=== PATIENT | male | born 1935 | race Caucasian/White ===

== ENCOUNTER 2017-11-26 19:56 | Observation (INO) ==
[2017-11-26 21:45] LABS: Basophils # (Auto) 0 K/mcL (0.0-0.3); Basophils % (Auto) 0.4 % (0.0-2.0); Eosinophils # (Auto) 0.1 K/mcL (0.0-0.7); Granulocytes % (Auto) 78.4 % (38.0-78.0); Lymphocytes # (Auto) 0.9 K/mcL (1.5-4.8); Mean Cell Volume 87.5 fL (80.0-100.0); Mean Corpuscular HGB Conc 34.8 g/dL (31.0-36.0); Mean Corpuscular Hemoglobin 30.5 pg (26.0-34.0); Monocytes # (Auto) 0.3 K/mcL (0.1-0.9); Monocytes % (Auto) 5.2 % (1.0-12.0); Platelet Count 269 K/mcL (140-440); RBC 4.13 M/mcL (4.50-5.90); Red Cell Distribution Width 12.9 % (11.5-14.5)
[2017-11-26] MEDS ORDERED: ONDANSETRON 4 MG/2 ML VIAL IV ONE (21:56)
[2017-11-26 22:02] LABS: ALT/SGPT 13 U/l (0-40); Albumin 4.1 gm/dL (3.2-5.2); Albumin/Globulin Ratio 1.3 (1.0-2.3); Alkaline Phosphatase 70 U/L (39-117); Blood Urea Nitrogen 27 mg/dl (8-23); Magnesium 2.1 mg/dL (1.6-2.5)
[2017-11-26] MEDS ORDERED: 0.9 % SODIUM CHLORIDE 1,000 ML IV ONE (22:42)
[2017-11-26] MEDS ORDERED: METOCLOPRAMIDE 10 MG/2 ML VIAL IV ONE (23:15)
--- NOTE | 2017-11-26 23:37 | Emergency Department Note ---
Abdominal Pain HPI - General Chief Complaint: Syncope Stated Complaint: Vagal Episodes Time Seen by Provider: 11/26/17 20:33 Source: patient Mode of arrival: ambulatory Limitations: no limitations - History of Present Illness HPI Narrative: 82-year-old man comes in via EMS after syncopal episode in his motor home. He went and had a hamburger at [employer] with his and afterwards came back to his motor home and went to have a bowel movement. While bearing down for a bowel movement which he says was soft, he passed out. His talked him get up and brought him back to his bed where he promptly passed out again. At this point EMS called. He vomited twice once in the ambulance and once in his motor home. EMS found him to be bradycardic with a heart rate of 36, bradycardia. I reviewed that rhythm strip. Happened twice before most recently 4 years ago. He reports that he is on 2 blood pressure medicines doxazosin and enalapril. He did not hurt himself when he passed out and fell either time, there was not enough room in the motor home for him to fall far enough to get hurt Reports recent cough and congestion along with feeling hot but no specific fever checked. 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 He completed vestibular rehab for vertigo about a year ago - Related Data Home Medications Medication Instructions Recorded Confirmed ALPRAZolam [Xanax] 0.25 mg PO DAILY 11/26/17 11/26/17 Clotrimazole/Betamethasone Dip 0 gm TOPICAL DAILY 11/26/17 11/26/17 [Clotrimazole-Betamethasone Crm] Doxazosin [Cardura] 4 mg PO DAILY 11/26/17 11/26/17 Enalapril [Vasotec] 5 mg PO DAILY 11/26/17 11/26/17 Meclizine [Antivert] 12.5 mg PO DAILYP PRN 11/26/17 11/26/17 Multivitamin [One Daily 1 each PO DAILY 11/26/17 11/26/17 Multivitamin] Mv-Mn/Iron/FA/Herbal Cmplx#190 1 each PO DAILY 11/26/17 11/26/17 [Vitamin D3 Complete Caplet] Omeprazole [PriLOSEC] 40 mg PO ACB 11/26/17 11/26/17 Riboflavin [Vitamin B-2] 250 mg PO BID 11/26/17 11/26/17 Allergies Allergy/AdvReac Type Severity Reaction Status Date / Time Penicillins [PENICILLINS] Allergy Severe "QUIT Verified 11/26/17 20:08 BREATHING" ciprofloxacin [From CIPRO] AdvReac Severe Vomiting Verified 11/26/17 20:08 metronidazole [From FLAGYL] AdvReac Severe Vomiting Verified 11/26/17 20:08 ibuprofen [IBUPROFEN] AdvReac Intermediate UPSETS Verified 11/26/17 20:08 STOMACH, BURNING STOMACH gabapentin [GABAPENTIN] AdvReac Mild STOMACH Verified 11/26/17 20:08 UPSET Review of Systems All systems ED: reviewed and negative except as stated. Abdominal Pain PMH - Past Medical History Attestation: Yes: The following information was validated with the patient. Medical history: Reports: hypertension, other (Post polio syndrome for which he wears braces on his bilateral legs. Intermittent vertigo) Surgical history ED: Reports: tonsillectomy, other (Stomach procedure) - Social History Smoking status: Never smoker Alcohol use: Reports: None Physical Exam Normocephalic atraumatic. Conjunctive are clear sclerae white and nonicteric. No nasal discharge or congestion. Oropharynx is pink and moist. Posterior pharynx is clear. Neck is supple without lymphadenopathy or thyromegaly. Heart is regular rate and rhythm no murmurs appreciated. Lungs are clear to auscultation bilaterally without wheezes rales rhonchi or respiratory distress. Abdomen soft nontender nondistended-however palpating his stomach does elicit nausea. No peritoneal signs or guarding. No active bowel sounds. No pedal edema but he is wearing braces on both legs. +2 radial pulse. Alert oriented able to answer questions appropriately. Cranial nerves II through XII grossly intact. Face is symmetrical. No dysarthria or ataxia is noted Limitations: no limitations Course Vital Signs Temperature 97.8 F 11/26/17 19:57 Pulse Rate 57 L 11/26/17 19:57 Respiratory Rate 18 11/26/17 19:57 Blood Pressure 157/67 11/26/17 19:57 Pulse Oximetry (%) 97 01/23/18 19:57 Temperature 97.8 F 11/26/17 19:57 Pulse Rate 76 11/26/17 23:32 Respiratory Rate 16 11/26/17 23:32 Blood Pressure 153/94 11/26/17 23:31 Pulse Oximetry (%) 96 11/26/17 23:32 Abdominal Pain - Lab Data Lab results reviewed: Yes I reviewed the patient's lab results. Result diagrams: 11/26/17 20:46 11/26/17 20:46 Lab Results 11/26/17 11/26/17 11/26/17 Range/Units 20:46 20:46 20:46 WBC 6.5 (4.5-11.0) K/mcL RBC 4.13 L (4.50-5.90) M/mcL Hgb 12.6 L (13.5-16.5) g/dL Hct 36.1 L (41.0-55.0) % POC Hct 36.0 L (41.0-55.0) % MCV 87.5 (80.0-100.0) fL MCH 30.5 (26.0-34.0) pg MCHC 34.8 (31.0-36.0) g/dL RDW 12.9 (11.5-14.5) % Plt Count 269 (140-440) K/mcL MPV 8.1 (7.4-10.4) fL Gran % 78.4 H (38.0-78.0) % Lymph % (Auto) 14.0 L (15.5-49.0) % [place] % (Auto) 5.2 (1.0-12.0) % Eos % (Auto) 2.0 (0.0-7.0) % Baso % (Auto) 0.4 (0.0-2.0) % Gran # 5.2 (1.8-8.0) K/mcL Lymph # (Auto) 0.9 L (1.5-4.8) K/mcL [place] # (Auto) 0.3 (0.1-0.9) K/mcL Eos # (Auto) 0.1 (0.0-0.7) K/mcL Baso # (Auto) 0 (0.0-0.3) K/mcL VBG Lactic Acid 1.1 (0.5-2.2) mmol/L POC Sodium 140 (133-145) mmol/L Sodium 139 (133-145) mmol/L POC Potassium 3.7 (3.3-5.1) mmol/L Potassium 3.8 (3.3-5.1) mmol/L POC Chloride 103 (96-108) mmol/L Chloride 101 (96-108) mmol/L Carbon Dioxide 24 (22-30) mmol/L POC Total CO2 28 (22-30) mmol/L Anion Gap 14.0 (8-16) POC BUN 28 H (8-23) mg/dl BUN 27 H (8-23) mg/dl Creatinine 0.7 (0.7-1.2) mg/dl POC Creatinine 0.7 (0.7-1.2) mg/dl GFR Calculation 89 Glucose 129 H (70-105) mg/dL POC Glucose 127 H (70-105) mg/dL Calcium 9.2 (8.6-10.4) mg/dl POC WB Ioniz Calcium 1.14 L (1.16-1.32) mmol/L Magnesium 2.1 (1.6-2.5) mg/dL Total Bilirubin 0.2 (0.0-1.0) mg/dL AST 18 (0-37) U/l ALT 13 (0-40) U/l Alkaline Phosphatase 70 (39-117) U/L Troponin T (0-0.03) ng/ml Total Protein 7.2 (5.9-8.4) gm/dL Albumin 4.1 (3.2-5.2) gm/dL Globulin 3.1 (2.2-3.7) gm/dL Albumin/Globulin Ratio 1.3 (1.0-2.3) 11/26/17 Range/Units 20:46 WBC (4.5-11.0) K/mcL RBC (4.50-5.90) M/mcL Hgb (13.5-16.5) g/dL Hct (41.0-55.0) % POC Hct (41.0-55.0) % MCV (80.0-100.0) fL MCH (26.0-34.0) pg MCHC (31.0-36.0) g/dL RDW (11.5-14.5) % Plt Count (140-440) K/mcL MPV (7.4-10.4) fL Gran % (38.0-78.0) % Lymph % (Auto) (15.5-49.0) % [place] % (Auto) (1.0-12.0) % Eos % (Auto) (0.0-7.0) % Baso % (Auto) (0.0-2.0) % Gran # (1.8-8.0) K/mcL Lymph # (Auto) (1.5-4.8) K/mcL [place] # (Auto) (0.1-0.9) K/mcL Eos # (Auto) (0.0-0.7) K/mcL Baso # (Auto) (0.0-0.3) K/mcL VBG Lactic Acid (0.5-2.2) mmol/L POC Sodium (133-145) mmol/L Sodium (133-145) mmol/L POC Potassium (3.3-5.1) mmol/L Potassium (3.3-5.1) mmol/L POC Chloride (96-108) mmol/L Chloride (96-108) mmol/L Carbon Dioxide (22-30) mmol/L POC Total CO2 (22-30) mmol/L Anion Gap (8-16) POC BUN (8-23) mg/dl BUN (8-23) mg/dl Creatinine (0.7-1.2) mg/dl POC Creatinine (0.7-1.2) mg/dl GFR Calculation Glucose (70-105) mg/dL POC Glucose (70-105) mg/dL Calcium (8.6-10.4) mg/dl POC WB Ioniz Calcium (1.16-1.32) mmol/L Magnesium (1.6-2.5) mg/dL Total Bilirubin (0.0-1.0) mg/dL AST (0-37) U/l ALT (0-40) U/l Alkaline Phosphatase (39-117) U/L Troponin T < 0.01 (0-0.03) ng/ml Total Protein (5.9-8.4) gm/dL Albumin (3.2-5.2) gm/dL Globulin (2.2-3.7) gm/dL Albumin/Globulin Ratio (1.0-2.3) Orthostatic vital signs are normal Influenza swab is negative - Radiology Data Radiology results reviewed: Yes I reviewed the patient's radiology results. CT scan of the head without contrast is negative for any acute abnormality X-rays of the abdomen show copious stool nonspecific bowel gas pattern. Notable scoliosis X-ray of the chest shows pleural scarring and elevated right hemidiaphragm but no acute findings - EKG Data EKG attestation: Yes I reviewed and interpreted this EKG. 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 Initial workup included EKG laboratory and abdominal x-ray. Urinalysis was ordered as well as orthostatics On rhythm strip from EMS he clearly was in sinus bradycardia which gradually improved over the stay to heart rate in the 70s and 80s. Orthostatics were normal but he had persistent lightheadedness and felt like he was going to pass out. Further his nausea actually got worse and he received another dose of Zofran and then a dose of Reglan. After reassessment I ordered a CT scan of the head and influenza swab and IV fluids. All testing was negative except for the bradycardia seen initially which again resolved. However he remained persistently nauseous and presyncopal /vertiginous. However he did not have nystagmus. Despite IV fluids he did not urinate for us. I then discussed the case with Dr. Baca the hospitalist. He agreed to accept the patient for further investigation of his vasovagal syncope with subsequent symptomatic sinus bradycardia, nausea/vomiting and dizziness Disposition: Xfer As Outpt/Obs ([facility]) Condition: Fair Referrals: Corey Garcia MD [Primary Care Provider] -
[2017-11-27] MEDS ORDERED: NALOXONE HCL 0.4 MG/ML VIAL IV PRN (00:49)
[2017-11-27] MEDS ORDERED: IOPAMIDOL 100 ML BOTTLE IJ ONE (00:49)
[2017-11-27] MEDS ORDERED: ONDANSETRON 4 MG/2 ML VIAL IV PRN (00:49)
[2017-11-27] MEDS ORDERED: ACETAMINOPHEN 325 MG TABLET PO PRN (00:49)
[2017-11-27] MEDS ORDERED: HYDROcodone/APAP 5/325MG TABLET PO PRN (00:49)
--- NOTE | 2017-11-27 00:51 | Internal Med History&Physical ---
Medical - H&P: HPI Patient information: Note initiated : 11/27/17 at 12:38 am Service Date, if different from initiated Date: [] Patient: Xavier Slater 82 y/o M admitted on for Vagal Episodes. Chief Complaint: [] History of present illness: Mr. Slater is a 82 year old Male with h/p polio in the past, HTN, vertigo, presents to the ER today after 3 episodes of syncope. The history was provided by the patient and his , the patient was present during these episodes of syncope. The patient was doing all right till the evening dinner, when he had sudden feeling of nausea and throbbing sensation in the head, not feeling well, he felt like he may have to go to the bathroom, some mild nausea present. When he was on the toilet seat, he became more weak and called out his for help. She arrived to see him pale, sweating and not himself, She gave him some towel to help, thats when he passed out, on his side, the patient then woke up, and passed 2 more times. EMS was therefore called. EMS noted that the patient had a bradycardic strip, the patient by the time of arrival to the ER had improved heart rate. The patient since then has been complaining of abdominal discomfort, and some nausea, changes in head position from sitting to standing will make him dizzy, and nauseaus, he will not pass out but feel very sick. He was on monitor and no bradycardia was no carolyn. The patient has h/o vertigo, and takes Meclizine prn for same, now uses a wrist c band for motion sickess and vertigo, last use of meclizine was over a year ago , vertigo spells started approximately 4 yrs ago. The patient has had 2 more episodes of syncope in the past, never like this but always on the toilet seat. The patient PCP has attributed this to vasovagal syncope. The patient denies any seizuer like episodes, no blood in the stools, the patient denies any chest pain, palpitations, changes in vision, abnormal smells , or any other complaints. In the ER the patient EKG shows sinus rhythm, with first degree HB and low voltage, labs are unremarkable, X ray chest seems neg, X ray abdomen is neg, CT head is negative. The patient othostatic bp shows elevation of HR by 20, but no drop in BP, the patient does get nauseas and feels dizzy with change in position. given that he lives in a trailer with his , and he is weak and dizzy, it was decided to admit him to the hospital for further management. All systems: reviewed and no additional remarkable complaints except as stated ( as per HPI) Medical - H&P: PMH Medical history: Medical History Vasovagal syncope (Acute) Symptomatic sinus bradycardia (Acute) Nausea & vomiting (Acute) Vertigo (Acute) HTN polio syncope GERD schatzki ring diverticulosis, with h/o diverticulitis Surgical history: nissens fundoplication CTS polio related surgery in lower extremity Pertinent family history: father with cAD, [place] at age 73 mother had pacemaker in the 's Social history: lives with in a trailor no smoking, no etoh, no recreational substance use. reported. Medical - H&P: Meds Home Medications Medication Instructions Recorded Confirmed Type ALPRAZolam [Xanax] 0.25 mg PO DAILY 11/26/17 11/26/17 History Clotrimazole/Betamethasone Dip 0 gm TOPICAL DAILY 11/26/17 11/26/17 History [Clotrimazole-Betamethasone Crm] Doxazosin [Cardura] 4 mg PO DAILY 11/26/17 11/26/17 History Enalapril [Vasotec] 5 mg PO DAILY 11/26/17 11/26/17 History Meclizine [Antivert] 12.5 mg PO DAILYP PRN 11/26/17 11/26/17 History Multivitamin [One Daily 1 each PO DAILY 11/26/17 11/26/17 History Multivitamin] Mv-Mn/Iron/FA/Herbal Cmplx#190 1 each PO DAILY 11/26/17 11/26/17 History [Vitamin D3 Complete Caplet] Omeprazole [PriLOSEC] 40 mg PO ACB 11/26/17 11/26/17 History Riboflavin [Vitamin B-2] 250 mg PO BID 11/26/17 11/26/17 History Allergies Allergy/AdvReac Type Severity Reaction Status Date / Time Penicillins [PENICILLINS] Allergy Severe "QUIT Verified 11/26/17 20:08 BREATHING" ciprofloxacin [From CIPRO] AdvReac Severe Vomiting Verified 11/26/17 20:08 metronidazole [From FLAGYL] AdvReac Severe Vomiting Verified 11/26/17 20:08 ibuprofen [IBUPROFEN] AdvReac Intermediate UPSETS Verified 11/26/17 20:08 STOMACH, BURNING STOMACH gabapentin [GABAPENTIN] AdvReac Mild STOMACH Verified 11/26/17 20:08 UPSET Medical - H&P: Exam - Constitutional Vitals: Temp Pulse Resp BP Pulse Ox 97.8 F 78 15 153/94 96 11/26/17 19:57 11/26/17 23:33 11/26/17 23:33 11/26/17 23:31 11/26/17 23:33 Exam: GENERAL: The patient is a well-developed, well-nourished in no apparent distress. Is alert and oriented x3. VITAL SIGNS: Reviewed and as noted elsewhere. HEENT: Head is normocephalic and atraumatic. Extraocular muscles are intact. Pupils are equal, round, and reactive to light. Nares appeared normal. Mouth appears any without lesions. Mucous membranes are dry NECK: Normal to inspection, Supple, No lymphadenopathy or thyromegaly. no carotid murmur LUNGS: Air entry equal on both sides, no wheezing, crackles or rhonchi noted. No accessory muscles of respiration HEART: Regular rate and rhythm normal, S1 and S2 heard, no Gallop, S3 or Rub Noted, No Gross murmur heard. ABDOMEN: Soft, left lower quadrant tenderness present, nondistended. Positive bowel sounds. No hepatosplenomegaly was noted. EXTREMITIES: No cyanosis, clubbing, rash, both legs in braces, NEUROLOGIC: Cranial nerves II through XII are grossly intact. Motor and Sensory System Grossly Intact, no nystagmus, pupils equally reactive to light, PSYCHIATRIC: Normal affect, Normal Mood. Appropriate Behavior. SKIN: No ulceration or wounds noted, No jaundice, No rash noted. Medical - H&P: Reslt - Labs CBC & Chem 7: 11/26/17 20:46 11/26/17 20:46 Labs: Short CBC 11/26/17 Range/Units 20:46 WBC 6.5 (4.5-11.0) K/mcL Hgb 12.6 L (13.5-16.5) g/dL Hct 36.1 L (41.0-55.0) % Plt Count 269 (140-440) K/mcL BMP 11/26/17 20:46 Sodium 139 Potassium 3.8 Chloride 101 Carbon Dioxide 24 BUN 27 H Creatinine 0.7 Glucose 129 H Calcium 9.2 Cardiac Enzymes 11/26/17 Range/Units 20:46 Troponin T < 0.01 (0-0.03) ng/ml Liver Function 11/26/17 Range/Units 20:46 Total Bilirubin 0.2 (0.0-1.0) mg/dL AST 18 (0-37) U/l ALT 13 (0-40) U/l Alkaline Phosphatase 70 (39-117) U/L Albumin 4.1 (3.2-5.2) gm/dL Medical - H&P: A/P - Narrative A/P Narrative: A/P Vasovagal syncope: H/o same in the past with similar circumstances, but given his age, will observe on tele, strip by ems was bradycardic, which is expected. Patient has recovered now. check TSH, check echo. CT head is negative. Dizziness/ vertigo/ nausea: likely exacerbation of his vertigo symptoms, Physical therapy, IV fluids and meclizine HTN : Resume home meds, patient has alpha frank, which can predispose to orthostatic dizziness, Will advise to discuss with pcp regarding same. Abdominal pain/ nausea: Exam has some left lower quadrant tenderness, albs unremarkable, pt has h/o nissens fundoplication, will get CT abdomen in AM. DVT hep sq Diet regular Full code.
[2017-11-27] MEDS: 0.9 % SODIUM CHLORIDE 1,000 ML IV SCH ×2 (01:07→07:22)
[2017-11-27] MEDS: MECLIZINE 25 MG TABLET PO SCH ×3 (01:07→15:00)
[2017-11-27 05:52] LABS: Basophils # (Auto) 0 K/mcL (0.0-0.3); Basophils % (Auto) 0.2 % (0.0-2.0); Eosinophils # (Auto) 0.1 K/mcL (0.0-0.7); Granulocytes % (Auto) 81.2 % (38.0-78.0); Lymphocytes # (Auto) 1.1 K/mcL (1.5-4.8); Mean Cell Volume 90.4 fL (80.0-100.0); Mean Corpuscular HGB Conc 34.2 g/dL (31.0-36.0); Mean Corpuscular Hemoglobin 30.9 pg (26.0-34.0); Monocytes # (Auto) 0.3 K/mcL (0.1-0.9); Monocytes % (Auto) 3.6 % (1.0-12.0); Platelet Count 259 K/mcL (140-440); RBC 3.71 M/mcL (4.50-5.90); Red Cell Distribution Width 13.6 % (11.5-14.5)
[2017-11-27 06:14] LABS: ALT/SGPT 11 U/l (0-40); Albumin 3.6 gm/dL (3.2-5.2); Albumin/Globulin Ratio 1.4 (1.0-2.3); Alkaline Phosphatase 61 U/L (39-117); Bilirubin,Direct < 0.2 mg/dL (0.0-0.3); Blood Urea Nitrogen 26 mg/dl (8-23); Gamma Glutamyl Transpeptidase 15 U/L (8-61); Magnesium 1.9 mg/dL (1.6-2.5); Uric Acid 4.2 mg/dL (2.5-8.0)
--- NOTE | 2017-11-27 06:18 | XRay Report ---
CLINICAL INFORMATION: Syncope COMPARISON: 01/26/2013 FINDINGS: Film taken in suboptimal inspiratory result accentuates the cardiomediastinal silhouette and pulmonary vessels. The heart is borderline enlarged. Subsegmental atelectasis noted in the right base, but no infiltrates. Right diaphragm mildly elevated - chronic finding. IMPRESSION: Suboptimal inspiratory result. Subsegmental right basilar atelectasis Moderate chronic elevation right diaphragm - stable Interpreted and Authenticated by: Yahir Love 11/27/17
--- NOTE | 2017-11-27 06:26 | XRay Report ---
CLINICAL INFORMATION: Syncope COMPARISON: None. FINDINGS: The stomach and duodenal bulb are mildly dilated with air-fluid levels. The small bowel and colon are relatively decompressed. No free air, organomegaly or soft tissue mass. Few phleboliths noted in the true pelvis. IMPRESSION: Mild dilatation of the stomach and duodenal bulb with decompression of the small bowel and colon. Findings are suggestive of possible duodenal obstruction or gastroparesis. Consider GI referral for endoscopy Interpreted and Authenticated by: Yahir Love 11/27/17
[2017-11-27] MEDS ORDERED: PANTOPRAZOLE 40 MG TABLET PO SCH (07:30)
[2017-11-27] MEDS ORDERED: RIBOFLAVIN PO SCH (09:00)
[2017-11-27] MEDS ORDERED: LISINOPRIL 5 MG TABLET PO SCH (09:00)
[2017-11-27] MEDS ORDERED: HEPARIN 5,000 UNIT/ML VIAL SQ SCH (09:00)
[2017-11-27] MEDS ORDERED: ALPRAZolam 0.25 MG TABLET PO SCH (09:00)
[2017-11-27] MEDS ORDERED: DOXAZOSIN 4 MG TABLET PO SCH (09:00)
[2017-11-27] MEDS ORDERED: ENALAPRIL 5 MG PO SCH (09:00)
--- NOTE | 2017-11-27 09:09 | Cat Scan Report ---
CLINICAL INFORMATION: Syncope. Patient has a known history of stable pituitary macroadenoma COMPARISON: Multiple MRIs dating back to 04/20/2004. TECHNIQUE: 2.5 mm helical slices were obtained in the skull base to vertex. Following reconstruction, axial reformatted images were reviewed at bone and parenchymal windows. The exam was performed using radiation dose optimization techniques including, but not limited to, automated exposure control, adjustment of the mA and/or kV according to patient size and use of iterative reconstruction technique. FINDINGS: The ventricles, sulci, fissures, and cisterns are symmetrically enlarged compatible with mild age-related atrophy. There is no subdural hemorrhage or extra-axial fluid collection appreciated. The no pituitary macroadenoma spans 20 x 12 x 16 mm has incited remodeling of the sella turcica. It extends to the lateral cavernous sinuses. It is unchanged. There is mild chronic ischemic changes in deep cerebral white matter with physiologic calcification seen in the lentiform nuclei. Is no acute cerebral hemorrhage mass effect or edema. IMPRESSION: 1. No intracerebral hemorrhage, edema or other acute intracerebral abnormality. 2. 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 Although the lesion has maintained long-term stability - it does mildly impinge the cavernous sinuses and could narrow the cavernous segments of one or both internal carotid arteries, thus representing a potential etiology for syncope. Consider CT cervical carotid and CT cerebral angiogram Interpreted and Authenticated by: Yahir Love 11/27/17
[2017-11-27 14:25] LABS: Appearance,Urine CLEAR; Bilirubin,Urine NEG (NEG); Color,Urine YELLOW; Glucose,Urine (UA) NEGATIVE (NEG); Leukocyte Esterase,Urine NEG /uL (NEG); Nitrate,Urine NEG (NEG); Protein,Urine NEG (NEG); Specific Gravity,Urine 1.012 (1.000-1.035); Urine Blood NEG mg/dL (<0.03); Urobilinogen,Urine NEG (NEG)
--- NOTE | 2017-11-27 15:40 | Cat Scan Report ---
CLINICAL INFORMATION: Abdominal pain COMPARISON: None. TECHNIQUE: Following enteric contrast, 80 cc of Isovue-300 were injected intravenously, and 60 seconds later, 0.625 mm helical slices were obtained from the mid heart through the subtrochanteric regions. Following reconstruction, 2.5 mm sagittal, coronal and axial reformatted images were processed and reviewed at bone, lung and soft tissue windows. Five minutes later, 0.625 mm helical slices were obtained from the mid heart through the kidneys and viewed at soft tissue windows.The exam was performed using radiation dose optimization techniques including, but not limited to, automated exposure control, adjustment of the mA and/or kV according to patient size and use of iterative reconstruction technique. FINDINGS: The right diaphragm is mildly elevated. Minor bibasilar atelectasis in both inferior lower lobes. No effusions. The visualized heart is normal in size with heavy calcific atherosclerotic plaque in the coronary arteries. Small hiatal hernia is noted. Images through the abdomen show the gallbladder and bile ducts, liver, right kidney, both adrenal glands, spleen, pancreas and aorta, including aortic branches, are normal in size, configuration and attenuation without focal lesion. There is a 2.5 cm simple cyst in the upper pole the left kidney and a 3.1 cm simple cyst inferior pole the left kidney. No free air, free fluid or adenopathy. The stomach, small large bowel and appendix are normal. The hepatic flexure is interposed between the anterior liver and the abdominal wall - a normal variant. Small bilateral inguinal hernias containing only mesenteric fat appreciated. Bone windows show severe L3-4 degenerative disc disease, but no focal osseous lesion. IMPRESSION: Small bilateral inguinal hernias containing only mesenteric fat. These are commonly seen and typically clinically inconsequential Sigmoid diverticulosis, but no CT evidence of diverticulitis. small hiatal hernia Interpreted and Authenticated by: Yahir Love 11/27/17
--- NOTE | 2017-11-27 16:01 | Discharge Summary ---
Medical - DS: Prov Patient information: Note initiated : 11/27/17 at 3:57 pm Service Date, if different from initiated Date: [] Patient: Xavier Slater 82 y/o M admitted on 11/27/17 for Vagal Episodes. Chief Complaint: [] Date of admission: 11/27/17 00:48 Discharge date: 11/27/17 Primary care physician: Corey Garcia Admitting clinician: Patt Baca Consults: 11/26/17 23:31 Consult to Physician [CONS] Stat Comment: Consulting Provider: Patt Baca Reason For Exam: Physician to Consult Discharging clinician: Patt Baca Medical - DS: Meds - Discharge Medications Active and Home Medications: Home Medications ALPRAZolam [Xanax] 0.25 mg PO DAILY 11/26/17 [History Confirmed 11/26/17 Last Taken 11/26/17] Clotrimazole/Betamethasone Dip [Clotrimazole-Betamethasone Crm] 0 gm TOPICAL DAILY 11/26/17 [History Confirmed 11/26/17 Last Taken 11/26/17] Doxazosin [Cardura] 4 mg PO DAILY 11/26/17 [History Confirmed 11/26/17 Last Taken 11/26/17] Enalapril [Vasotec] 5 mg PO DAILY 11/26/17 [History Confirmed 11/26/17 Last Taken 11/26/17] Meclizine [Antivert] 12.5 mg PO DAILYP PRN 11/26/17 [History Confirmed 11/26/17 Last Taken 11/26/17] Multivitamin [One Daily Multivitamin] 1 each PO DAILY 11/26/17 [History Confirmed 11/26/17 Last Taken 11/26/17] Mv-Mn/Iron/FA/Herbal Cmplx#[id number] [Vitamin D3 Complete Caplet] 1 each PO DAILY [History Confirmed 11/26/17 Last Taken 11/26/17] Omeprazole [PriLOSEC] 40 mg PO ACB 11/26/17 [History Confirmed 11/26/17 Last Taken 11/26/17] Riboflavin [Vitamin B-2] 250 mg PO BID 11/26/17 [History Confirmed 11/26/17 Last Taken 11/26/17] Medical - DS: Hosp Hospital course: Mr. Slater is a 82 year old Male with h/p polio in the past, HTN, vertigo, presented to the ER after 3 episodes of syncope. The history was provided by the patient and his , the patient was present during these episodes of syncope. The patient was doing all right till the evening dinner, when he had sudden feeling of nausea and throbbing sensation in the head, not feeling well, he felt like he may have to go to the bathroom, some mild nausea present. When he was on the toilet seat, he became more weak and called out his for help. She arrived to see him pale, sweating and not himself, She gave him some towel to help, thats when he passed out, on his side, the patient then woke up, and passed 2 more times. EMS was therefore called. EMS noted that the patient had a bradycardic strip, the patient by the time of arrival to the ER had improved heart rate. The patient since then has been complaining of abdominal discomfort, and some nausea, changes in head position from sitting to standing will make him dizzy, and nauseas, he will not pass out but feel very sick. He was on monitor and no bradycardia was noted. Syncope: Vasovagal episode, he had 3 spells likely because he was not able to lie horizontal, monitored on tele overnight, with no issues, had sinus bradycardia with good response to activity. Patient echo showed mild to moderate AI but good LVEF, no carotid bruit on exam. Educated on vasovagal syncope, need to lie down when he can feel symptoms coming on. Advised to talk with PCP and consider Cardiology eval Vertigo: chr issue dizziness and vertigo responded to meclizine and PT, this AM he was able to ambulate well , back to baseline and able to tolerate po well Nausea and abdominal pain: Ct abdomen done, neg study for acute pathology Pituitary adenoma, : chr and stable, radiology report reviewed, clinically this is typical of vasovagal syncope, and hence would avoid pursuing the CT angio at this time. I will leave this decision to the PCP. The patient has had a near stable MRI for over a decade. Patient is scheduled for a repeat MRI for evaluation of stability. Discharge diagnosis: Vasovagal syncope, vertigo, - Time Spent with Patient Total time spent providing and/or coordinating discharge services: Greater than 30 minutes Medical - DS: Exam - Constitutional Vitals: Vital Signs Temp Pulse Pulse Resp BP BP Pulse Ox 11/27/17 12:37 97.5 F 53 L 18 108/59 97 11/27/17 08:00 56 L 18 97 11/27/17 07:44 119/77 11/27/17 04:01 98.2 F 67 16 126/103 97 11/27/17 00:49 98.2 F 84 18 141/74 97 11/27/17 00:48 98.2 F 84 18 141/74 97 11/26/17 23:33 78 15 96 11/26/17 23:32 76 16 96 11/26/17 23:31 78 16 153/94 94 11/26/17 23:25 80 21 158/78 93 11/26/17 23:13 75 14 95 11/26/17 22:46 70 12 135/81 97 11/26/17 22:31 69 9 L 137/83 98 11/26/17 22:17 85 151/92 98 11/26/17 22:16 75 135/84 97 11/26/17 22:14 82 18 137/72 99 11/26/17 22:01 60 12 131/67 95 11/26/17 21:49 60 12 132/68 96 11/26/17 21:46 63 16 138/73 95 11/26/17 21:31 59 L 15 142/84 97 11/26/17 21:23 64 165/76 96 11/26/17 20:31 56 L 15 142/66 95 11/26/17 20:17 59 L 15 133/72 94 11/26/17 20:05 60 13 157/67 95 11/26/17 19:57 97.8 F 57 L 18 157/67 97 Intake and Output 11/27/17 11/27/17 11/27/17 05:59 13:59 21:59 Intake Total 1120 / 1120 1173 / 1173 Output Total 250 / 250 400 / 400 Balance 870 / 870 773 / 773 Intake: IV 1000 / 1000 933 / 933 Sodium Chloride 0.9% 1,000 ml @ 1000 / 1000 933 / 933 150 mls/hr IV [id number] Rx#: [id number] Oral 120 / 120 240 / 240 Output: Void Amount 250 / 250 400 / 400 Other: Meal Lunch Percent of Meal Consumed 75% Feeding Ability Assist with Tray Set Up # Bowel Movements 0 Weight 150 lb 5 oz Additional comments: Constitutional; Afebrile, cooperative, alert, not in distress. Eyes- No icterus, , No periorbital swelling Ears- Ext ear normal, hearing normal to conversation. Neck- Midline trachea, supple Respiratory system: Air Entry equal on both sides, No crackles or wheezing, no rhonchi. CVS- Rate rhythm regular, S1,S2 heard, no gallop, no rub. Abdomen- Soft nontender abdomen, no organomegaly, no tenderness, no guarding or rigidity, [employer]- AOOx3, moving all extremities, no gross focal deficit noted. Medical - DS: Data Procedures and tests throughout hospitalization: CT Abdomen IMPRESSION: Small bilateral inguinal hernias containing only mesenteric fat. These are commonly seen and typically clinically inconsequential Sigmoid diverticulosis, but no CT evidence of diverticulitis. small hiatal hernia CT head Labs on day of discharge: Labs from last 24 hours 11/27/17 11/27/17 11/27/17 12:47 03:45 03:45 WBC 7.7 RBC 3.71 L Hgb 11.4 L Hct 33.5 L POC Hct MCV 90.4 MCH 30.9 MCHC 34.2 RDW 13.6 Plt Count 259 MPV 8.6 Gran % 81.2 H Lymph % (Auto) 14.0 L [place] % (Auto) 3.6 Eos % (Auto) 1.0 Baso % (Auto) 0.2 Gran # 6.2 Lymph # (Auto) 1.1 L [place] # (Auto) 0.3 Eos # (Auto) 0.1 Baso # (Auto) 0 VBG Lactic Acid POC Sodium Sodium 142 POC Potassium Potassium 4.2 POC Chloride Chloride 106 Carbon Dioxide 23 POC Total CO2 Anion Gap 13.0 POC BUN BUN 26 H Creatinine 0.7 POC Creatinine GFR Calculation 89 Glucose 134 H POC Glucose Uric Acid 4.2 Calcium 8.5 L POC WB Ioniz Calcium Phosphorus 3.2 Magnesium 1.9 Total Bilirubin 0.2 Direct Bilirubin < 0.2 GGT 15 AST 17 ALT 11 Alkaline Phosphatase 61 Lactate Dehydrogenase 131 Troponin T Total Protein 6.2 Albumin 3.6 Globulin 2.6 Albumin/Globulin Ratio 1.4 Triglycerides 192 H Procalcitonin TSH Urine Color Yellow Urine Appearance Clear Urine pH 6.0 Ur Specific [place] 1.012 Urine Protein Neg Urine Glucose (UA) Negative Urine Ketones Neg Urine Occult Blood Neg Urine Nitrate Neg Urine Bilirubin Neg Urine Urobilinogen Neg Ur Leukocyte Esterase Neg Ur Culture Indicated? No 11/26/17 11/26/17 11/26/17 23:40 23:40 20:46 WBC RBC Hgb Hct POC Hct MCV MCH MCHC RDW Plt Count MPV Gran % Lymph % (Auto) [place] % (Auto) Eos % (Auto) Baso % (Auto) Gran # Lymph # (Auto) [place] # (Auto) Eos # (Auto) Baso # (Auto) VBG Lactic Acid POC Sodium Sodium POC Potassium Potassium POC Chloride Chloride Carbon Dioxide POC Total CO2 Anion Gap POC BUN BUN Creatinine POC Creatinine GFR Calculation Glucose POC Glucose Uric Acid Calcium POC WB Ioniz Calcium Phosphorus Magnesium Total Bilirubin Direct Bilirubin GGT AST ALT Alkaline Phosphatase Lactate Dehydrogenase Troponin T < 0.01 Total Protein Albumin Globulin Albumin/Globulin Ratio Triglycerides Procalcitonin < 0.05 TSH 1.84 Urine Color Urine Appearance Urine pH Ur Specific [place] Urine Protein Urine Glucose (UA) Urine Ketones Urine Occult Blood Urine Nitrate Urine Bilirubin Urine Urobilinogen Ur Leukocyte Esterase Ur Culture Indicated? 11/26/17 11/26/17 11/26/17 20:46 20:46 20:46 WBC 6.5 RBC 4.13 L Hgb 12.6 L Hct 36.1 L POC Hct 36.0 L MCV 87.5 MCH 30.5 MCHC 34.8 RDW 12.9 Plt Count 269 MPV 8.1 Gran % 78.4 H Lymph % (Auto) 14.0 L [place] % (Auto) 5.2 Eos % (Auto) 2.0 Baso % (Auto) 0.4 Gran # 5.2 Lymph # (Auto) 0.9 L [place] # (Auto) 0.3 Eos # (Auto) 0.1 Baso # (Auto) 0 VBG Lactic Acid 1.1 POC Sodium 140 Sodium 139 POC Potassium 3.7 Potassium 3.8 POC Chloride 103 Chloride 101 Carbon Dioxide 24 POC Total CO2 28 Anion Gap 14.0 POC BUN 28 H BUN 27 H Creatinine 0.7 POC Creatinine 0.7 GFR Calculation 89 Glucose 129 H POC Glucose 127 H Uric Acid Calcium 9.2 POC WB Ioniz Calcium 1.14 L Phosphorus Magnesium 2.1 Total Bilirubin 0.2 Direct Bilirubin GGT AST 18 ALT 13 Alkaline Phosphatase 70 Lactate Dehydrogenase Troponin T Total Protein 7.2 Albumin 4.1 Globulin 3.1 Albumin/Globulin Ratio 1.3 Triglycerides Procalcitonin TSH Urine Color Urine Appearance Urine pH Ur Specific [place] Urine Protein Urine Glucose (UA) Urine Ketones Urine Occult Blood Urine Nitrate Urine Bilirubin Urine Urobilinogen Ur Leukocyte Esterase Ur Culture Indicated? Medical - DS: A/P - Patient/Caregiver Discharge Instructions Activity: increase activity as tolerated Diet: Regular Diet Additional Instructions: You were admitted the hospital with syncope and dizziness You have vasovagal syncope, your echocardiogram shows good cardiac function, you have mild to moderate aortic valve insufficiency, YOu may need continued monitoring for this. Your Head CT showed the chr stable pituitary adenoma. I doubt if this is the cause for your syncope, but I would advise you check this out with your PCP/ Neurosurgeon. GO to the ER if worsening symptoms, or passing out spells again Stay well hydrated. No changes in your chronic medication have been made. Follow up with your PCP in 1 -2 week for follow up, he may chose to refer you to a rn pool for further evaluation. - Follow up Plan Follow up with: Corey Garcia MD [Primary Care Provider] - 12/04/17 2:15 pm Disposition: Home, Self-Care Prognosis: Fair Rehab Potential: Fair I certify that the patient requires SNF services: No Overall status at discharge: patient is back to baseline Medical - DS: Qual - VTE Deep Vein Thrombosis/Pulmonary Embolism Present on Admission: No
== END 2017-11-27 17:00 | disposition home or self-care (01) ==
LOC: ICU 19:56 → ED 19:56 → ICU 11-27 00:50
PROVIDERS: ADMIT Internal Medicine; ATTEND Internal Medicine